=== PATIENT | female | born 1950 ===

== ENCOUNTER 2025-02-16 08:45 | Inpatient (IN) | payer OTHER ==
[~2025-02-16] VITALS: Ht 162.6 cm; Wt 78.5 kg
[2025-02-16] MEDS ORDERED: LIPITOR40 MG PO (09:40)
[2025-02-16] MEDS ORDERED: NORVASC2.5 MG PO (09:40)
[2025-02-16] MEDS ORDERED: CITALOPRAM HBR10 MG PO (09:41)
[2025-02-16] MEDS ORDERED: ATACAND32 MG PO (09:41)
[2025-02-16] MEDS ORDERED: TEMAZEPAM15 MG PO (09:41)
[2025-02-16] MEDS ORDERED: TOPROL XL50 M1 PO (09:41)
[2025-02-16 09:42] VITALS: BP 146/85
[2025-02-16 10:08] LABS: URINE APPEARANCE Clear; URINE BILIRRUBIN Negative (NEGATIVE); URINE COLOR Yellow; URINE GLUCOSE Negative (NEGATIVE); URINE KETONE Negative (NEGATIVE); URINE LEUKOCYTE Trace; URINE NITRATE Negative; URINE PROTEIN Negative (NEGATIVE); URINE UROBILINOGEN 1.0 E.U./dl
[2025-02-16 10:11] LABS: URINE BACTERIA 26.3 uL (0.0-1933); URINE EPITHELIAL CELLS 2.7 uL (0.0-38.8); URINE RBC 73.0 uL (0.0-20.8); URINE WBC 3.3 uL (0.0-23.2)
[2025-02-16 10:12] LABS: URINE BLOOD TRACES; URINE CAST 0.00 uL (0.0-1.40)
[2025-02-16 10:16] LABS: BASO % 0.5 % (0.1-1.2); EOS # 0.08 (0.04-0.54); EOS % 1.3 % (0.7-7.0); LYMPH # 2.39 (1.18-3.74); LYMPH % 38.4 % (19.3-53.1); MEAN PLATELET VOLUME 9.10 fl (9.4-12.4); MONO # 0.50 (0.24-0.82); MONO % 8.0 % (4.7-12.5); NEUT # 3.22 (1.56-6.13); NEUT % 51.6 % (34.0-71.1); RED CELL DISTRIBUTION WIDTH 12.1 % (11.6-14.4)
[2025-02-16 10:25] LABS: COVID-19 AG NEGATIVE (NEGATIVE)
[2025-02-16 10:31] LABS: INR 1.0
[2025-02-16 10:49] LABS: ALT/SGPT 29.0 U/L (12-78); AST/SGOT 20.0 U/L (15-37); BILIRUBIN TOTAL 0.95 mg/dL (0.3-1.2); BUN CREA RATIO 12.0 (7.0-25.0); CREATININE SERUM 0.67 mg/dL (0.55-1.02); GFR 85.8; GLOBULINA 4.0 G/DL (2.4-3.5); GLUCOSE FASTING 93.0 mg/dL (65-100); OSMOLALITY SERUM 276.0 MOSM/KG (275-295)
[2025-02-16 10:52] LABS: RH POSITIVE
[2025-02-24] MEDS ORDERED: CHLORTHALIDONE25 MG (07:49)
[2025-02-24] MEDS ORDERED: BUSPIRONE HCL5 MG (07:49)
[2025-02-24] MEDS ORDERED: ONDANSETRON HCL 2 MG/ML VIAL IV PRN (12:15)
[2025-02-24] MEDS ORDERED: OxyCODONE HCL 5 MG TABLET (ROXICODONE) PO PRN (12:15)
[2025-02-24] MEDS ORDERED: MORPHINE SULFATE 4 MG/ML CARTRIDGE IV PRN (12:15)
[2025-02-24] MEDS ORDERED: SODIUM CHLORIDE 0.45 % 1,000 ML IV SCH (12:15)
[2025-02-24] MEDS ORDERED: hydrALAZINE HCL 20 MG VIAL IV PRN (15:00)
[2025-02-24] MEDS ORDERED: CEFAZOLIN SODIUM 1,000 MG VIAL IV SCH (17:00)
[2025-02-24] MEDS ORDERED: GABAPENTIN 300 MG CAPSULE PO SCH (17:00)
[2025-02-24 17:32] VITALS: BP 130/75; O2SAT 95
[2025-02-24] MEDS ORDERED: ACETAMINOPHEN 500 MG GEL..CAP PO SCH (18:00)
[2025-02-24] MEDS ORDERED: TEMAZEPAM 15 MG CAPSULE PO SCH (21:00)
[2025-02-25 00:30] VITALS: BP 114/74; O2SAT 98
[2025-02-25 06:50] LABS: BASO % 0.5 % (0.1-1.2); EOS # 0.06 (0.04-0.54); EOS % 0.9 % (0.7-7.0); LYMPH # 1.32 (1.18-3.74); LYMPH % 19.9 % (19.3-53.1); MEAN PLATELET VOLUME 9.60 fl (9.4-12.4); MONO # 0.49 (0.24-0.82); MONO % 7.4 % (4.7-12.5); NEUT # 4.70 (1.56-6.13); NEUT % 71.0 % (34.0-71.1); RED CELL DISTRIBUTION WIDTH 12.2 % (11.6-14.4)
[2025-02-25] MEDS ORDERED: DUI500 PO (08:32)
[2025-02-25] MEDS ORDERED: PERCOCET 5-3251 EACH PO (08:32)
[2025-02-25] MEDS ORDERED: ELIQUIS2.5 MG PO (08:32)
[2025-02-25] MEDS ORDERED: CANDESARTAN CILEXETIL 32 MG TABLET PO SCH (09:00)
[2025-02-25] MEDS ORDERED: SENNOSIDES 1 TAB TABLET PO SCH (09:00)
[2025-02-25] MEDS ORDERED: METOPROLOL SUCCINATE 50 MG TAB.SR.24H PO SCH (09:00)
[2025-02-25] MEDS ORDERED: APIXABAN 2.5 MG TABLET PO SCH (09:00)
[2025-02-25] MEDS ORDERED: ATORVASTATIN CALCIUM 40 MG TABLET PO SCH (09:00)
[2025-02-25 09:51] VITALS: BP 110/65; O2SAT 97
[2025-02-25 14:24] LABS: COVID-19 AG NEGATIVE (NEGATIVE)
[2025-02-25] MEDS ORDERED: BUPIVACAINE HCL 30 ML VIAL IJ ONE (15:45)
[2025-02-25] MEDS ORDERED: KETOROLAC TROMETHAMINE 60 MG VIAL IM ONE (15:45)
[2025-02-25] MEDS ORDERED: TRANEXAMIC ACID 100MG/1ML (1000MG) AMPUL IV ONE (15:45)
[2025-02-25] MEDS ORDERED: MORPHINE SULFATE 4 MG/ML CARTRIDGE IV ONE (15:45)
[2025-02-25] MEDS ORDERED: VANCOMYCIN HCL 1,000 MG VIAL IR ONE (15:45)
[2025-02-25] MEDS ORDERED: CEFAZOLIN SODIUM 1,000 MG VIAL IV SCH (15:45)
[2025-02-25 16:00] VITALS: BP 132/84; O2SAT 97
[2025-02-25] MEDS ORDERED: POVIDONE-IODINE 118 ML BOTT TOP ONE (16:00)
[2025-02-26] MEDS ORDERED: IRON FUM,PS/FOLIC ACID/VITC/B3 1 CAP CAPSULE PO SCH (09:00)
== END 2025-02-25 17:42 | DRG 470 ==
LOC: O/R 02-24 07:41 → SURH 02-24 07:41 → EDBD 02-24 08:45 → SURH 02-24 08:45
PROVIDERS: ADMIT Orthopaedic Surgery; ATTEND Orthopaedic Surgery
PROC: 0QUD0KZ Supplement Right Patella with Nonautologous Tissue Substitute, Open Approach (ICD-10-PCS; 2025-02-24)
PROC: 0MNN0ZZ Release Right Knee Bursa and Ligament, Open Approach (ICD-10-PCS; 2025-02-24)
PROC: 0QUD0JZ Supplement Right Patella with Synthetic Substitute, Open Approach (ICD-10-PCS; 2025-02-24)
PROC: 0SRC0JZ Replacement of Right Knee Joint with Synthetic Substitute, Open Approach (ICD-10-PCS; principal; 2025-02-24 11:30)
DX: M17.11 Unilateral primary osteoarthritis, right knee (principal); M81.0 Age-related osteoporosis without current pathological fracture; Z96.651 Presence of right artificial knee joint; I10 Essential (primary) hypertension; M22.11 Recurrent subluxation of patella, right knee